=== PATIENT | male | born 1985 | race Caucasian/White ===

== ENCOUNTER → 2016-10-28 | Day surgery (SDC) | payer BC ==
[~2016-10-28] MED LIST: BAYER ADVANCED500 MG PO; CIPRO PO; KEFLEX500 MG PO; NO MEDICATIONS; VICODIN 5/1 TAB 5/50 PO
--- NOTE | ~2016-10-28 | OR ---
Unit #: [id number] #: [id number] Patient: JUAN RITTER [id number] [address] [place], [place] [address] [id number] MR#: [id number] NAME: JUAN RITTER ROOM: Date of Procedure: 10/28/2016 Admission Date: 10/28/2016 Surgeon: Mike Swan M.D. : 1985 Attending Physician: Mike Swan M.D. Primary Care Physician: Mike Best M.D. OPERATIVE REPORT PREOPERATIVE DIAGNOSIS Atypical melanocytic skin lesions x3. POSTOPERATIVE DIAGNOSIS Atypical melanocytic skin lesions x3. PROCEDURE PERFORMED Excision of atypical melanocytic skin lesion shave biopsy sites with margin x3. All lesions were less than a 1 cm. ANESTHESIA Monitored anesthesia with local anesthetic. ESTIMATED BLOOD LOSS 20 mL. INDICATIONS FOR PROCEDURE Mr. Ritter is a 31-year-old gentleman, who came to the office after being seen by his support assistant. He had 3 suspicious skin lesions on his back that were removed by shave biopsy and it came back as atypical melanocytic lesions with a recommendation for full-thickness excision to rule out an invasive melanoma. DESCRIPTION OF PROCEDURE The patient was admitted to [facility]. [facility], positively identified, transported to the operating room, and after I had marked the position of the lesions, he was placed in the decubitus position with the left side up that gave me exposure to all 3 lesions. He was prepped and draped in usual sterile fashion. In the left flank, there was a lesion. I marked 1 cm margin around the shave biopsy site, did a full-thickness wedge excision at this site, irrigated, obtained hemostasis and sent the specimen to the laboratory. The deep subcutaneous tissues closed with 2-0 Vicryl interrupted suture. The dermis was reapproximated with 3-0 Vicryl interrupted suture and the skin edges were approximated with 3-0 nylon vertical mattress sutures. Telfa and Tegaderm were placed as an occlusive sterile dressing. In the midline of the back near the vertebral column, there were 2 separate sites, but they were close enough that I combined them into a single excision. Again, I measured an adequate 1 cm margin from the appropriate shave biopsy sites and then made a vertical wedge excision, again excising the lesion full-thickness down into the subcutaneous tissue. This too was sent to the laboratory as a separate specimen. I irrigated and obtained hemostasis, closed the deep Unit #: [id number] #: [id number] Patient: JUAN RITTER subcutaneous tissue with 2-0 Vicryl interrupted suture, the dermis with 3-0 interrupted Vicryl suture, and the skin was reapproximated with 3-0 nylon vertical mattress sutures. Again, Telfa and Tegaderm were placed as a dry sterile occlusive dressing. Sponges and needle counts were correct x3. The patient tolerated the procedure well and transported to recovery in stable condition. Findings and postoperative instructions were discussed with his father. Dictated by... Amador Pepe/cintia TD: 10/29/2016 03:02 JOB #: [id number] OPERATIVE REPORT Page 1 of 1 X Mike Swan MD PROCEDURE OPERATIVE NOTE
== END | disposition home or self-care (01) ==
LOC: CSUR 09:04
DX: D22.5 Melanocytic nevi of trunk (principal); I10 Essential (primary) hypertension; F17.210 Nicotine dependence, cigarettes, uncomplicated; J30.9 Allergic rhinitis, unspecified; Z98.890 Other specified postprocedural states; Z80.3 Family history of malignant neoplasm of breast; Z82.3 Family history of stroke
CPT/HCPCS: 88305; J2250; J3010